=== PATIENT | female | born 1970 | race Caucasian/White ===

== ENCOUNTER → 2016-07-06 | Outpatient (CLI) | payer MEDICARE ==
[~2016-07-06] MED LIST: AMITRIPTYLINE25 MG PO; CLARITIN D TAB1 TAB PO; DARVOCET N 101 UDTAB PO; DEPAKOTE PO; FLEXERIL; GLUCOPHAGE500 MG/TAB PO; INDERAL PO; MORPHINE10 MG PO; PERCOCET 325 MG1 TA2 PO; PERCOCET 325 MG1 TAB PO; PRILOSEC 20MG20 MG PO; PROZAC20 MG PO; PROZAC40 MG PO; SINVASTATIN; TRIAZOLAM0.25 MG PO
== END ==
LOC: BHSO 15:00
DX: F06.32 Mood disorder due to known physiological condition with major depressive-like episode (principal)

== ENCOUNTER → 2016-08-03 | Outpatient (CLI) | payer MEDICARE | LOC: BHSO 15:08 | DX: F41.1 Generalized anxiety disorder (principal) ==

== ENCOUNTER → 2017-02-17 | Outpatient (REF) | LOC: WSOH 15:30 | DX: Z02.89 Encounter for other administrative examinations (principal) ==

== ENCOUNTER → 2017-04-15 | Outpatient (CLI) | payer MEDICARE | LOC: BHSO 15:06 | DX: F41.1 Generalized anxiety disorder (principal) ==

== ENCOUNTER → 2017-12-23 | Outpatient (CLI) | payer MEDICARE | LOC: BHSO 13:29 | DX: F42.8 Other obsessive-compulsive disorder (principal) | CPT/HCPCS: G0463 ==

== ENCOUNTER → 2018-03-27 | Outpatient (CLI) | payer MEDICARE ==
[2018-03-27 13:08] LABS: COLLECTION METHOD CLEAN CATCH
[2018-03-27 13:11] LABS: BASO # 0.1 (0.0-0.2); BASO % 0.5 % (0.0-2.0); EOS # 0.3 (0.0-0.7); EOS % 1.8 % (0-4.0); GRAN % 63.1 % (42.2-75.2); HEMOGLOBIN 14.5 g/dl (12.5-16.0); LYMPH # 4.8 (1.2-3.4); LYMPH % 27.4 % (20.0-51.0); MEAN CELL VOLUME 87 fl (80.0-100.0); MEAN CORPUSCULAR HEMOGLOBIN 29 pg (27.0-31.0); MEAN CORPUSCULAR HGB CONC 34 g/dl (33.0-37.0); MONO # 1.2 (0.1-0.6); MONO % 6.6 % (1.7-9.3); PLATELET COUNT 506 K/mm3 (130-400); RED BLOOD COUNT 4.94 M/mm3 (4.10-5.30); REDCELL DISTRIBUTION WIDTH-CV 12.9 % (11.5-14.5)
[2018-03-27 13:12] LABS: ALBUMIN 4.1 gm/dL (3.5-5.0); BILIRUBIN,TOTAL 0.4 mg/dL (0.0-1.0); CALCIUM 9.6 mg/dL (8.4-10.2); CHOLESTEROL RISK RATIO 8.2; CREATININE, serum 0.91 mg/dL (0.52-1.25); MUCOUS Present /lpf; PH 5 (5-8); POTASSIUM 3.4 mmol/L (3.4-5.0); SQUAMOUS EPITHELIAL 0-2 /hpf; THYROID STIMULATING HORMONE 0.19 uIU/mL (0.465-4.680); TOTAL PROTEIN 7.7 gm/dL (6.4-8.2); URINE APPEARANCE Clear; URINE BACTERIA None Seen /hpf; URINE BILIRUBIN Negative (NEGATIVE); URINE BLOOD Negative (NEGATIVE); URINE COLOR Yellow; URINE GLUCOSE Negative (NEGATIVE); URINE KETONE Negative (NEGATIVE); URINE LEUKOCYTE ESTERASE Negative (NEGATIVE); URINE NITRATE Negative (NEGATIVE); URINE PROTEIN(semi-quant) Negative (NEGATIVE); URINE RBC 0-2 /hpf; URINE UROBILINOGEN Negative (NEGATIVE); URINE WBC 0-2 /hpf
[2018-03-28 03:11] LABS: HEPATITIS C VIRUS ANTIBODY Negative (Negative)
== END ==
LOC: COL.LAB 09:14
PROVIDERS: Internal Medicine
DX: Z11.59 Encounter for screening for other viral diseases (principal); I10 Essential (primary) hypertension; E78.5 Hyperlipidemia, unspecified; E11.9 Type 2 diabetes mellitus without complications
CPT/HCPCS: 87522

== ENCOUNTER → 2018-07-06 | Outpatient (CLI) | payer MEDICARE ==
[2018-07-06 10:15] LABS: BASO # 0.1 (0.0-0.2); BASO % 0.4 % (0.0-2.0); EOS # 0.3 (0.0-0.7); EOS % 2.3 % (0-4.0); GRAN # 10.2 (1.4-6.5); GRAN % 67.5 % (42.2-75.2); HEMATOCRIT 44.4 % (37.0-47.0); HEMOGLOBIN 14.9 g/dl (12.5-16.0); LYMPH # 3.6 (1.2-3.4); LYMPH % 23.8 % (20.0-51.0); MEAN CELL VOLUME 87 fl (80.0-100.0); MEAN CORPUSCULAR HEMOGLOBIN 29 pg (27.0-31.0); MEAN CORPUSCULAR HGB CONC 34 g/dl (33.0-37.0); MEAN PLATELET VOLUME 9.6 fl (7.4-10.4); MONO # 0.8 (0.1-0.6); MONO % 5.5 % (1.7-9.3); PLATELET COUNT 518 K/mm3 (130-400); RED BLOOD COUNT 5.12 M/mm3 (4.10-5.30); REDCELL DISTRIBUTION WIDTH-CV 13.9 % (11.5-14.5)
== END ==
LOC: COL.LAB 09:53
PROVIDERS: Internal Medicine
DX: D64.9 Anemia, unspecified (principal)

== ENCOUNTER → 2018-07-25 | Outpatient (CLI) | payer MEDICARE | LOC: BHSO 14:45 | DX: F41.1 Generalized anxiety disorder (principal) | CPT/HCPCS: G0463 ==

== ENCOUNTER → 2018-09-19 | Outpatient (CLI) | payer MEDICARE | LOC: BHSO 14:38 | DX: F42.8 Other obsessive-compulsive disorder (principal) | CPT/HCPCS: G0463 ==

== ENCOUNTER → 2018-10-02 | Outpatient (CLI) | payer MEDICARE ==
[2018-10-02 10:49] LABS: BASO # 0.1 (0.0-0.2); BASO % 0.5 % (0.0-2.0); EOS # 0.3 (0.0-0.7); EOS % 2.3 % (0-4.0); GRAN # 9.3 (1.4-6.5); GRAN % 64.7 % (42.2-75.2); HEMATOCRIT 42.8 % (37.0-47.0); HEMOGLOBIN 14.3 g/dl (12.5-16.0); LYMPH # 3.5 (1.2-3.4); LYMPH % 24.1 % (20.0-51.0); MEAN CELL VOLUME 88 fl (80.0-100.0); MEAN CORPUSCULAR HEMOGLOBIN 29 pg (27.0-31.0); MEAN CORPUSCULAR HGB CONC 33 g/dl (33.0-37.0); MEAN PLATELET VOLUME 9.4 fl (7.4-10.4); MONO # 1.1 (0.1-0.6); MONO % 7.9 % (1.7-9.3); PLATELET COUNT 536 K/mm3 (130-400); RED BLOOD COUNT 4.89 M/mm3 (4.10-5.30); REDCELL DISTRIBUTION WIDTH-CV 13.3 % (11.5-14.5)
[2018-10-02 10:59] LABS: CHOLESTEROL RISK RATIO 4.9
== END ==
LOC: COL.LAB 09:46
PROVIDERS: Internal Medicine
DX: D72.829 Elevated white blood cell count, unspecified (principal); D47.3 Essential (hemorrhagic) thrombocythemia; E78.5 Hyperlipidemia, unspecified

== ENCOUNTER → 2018-11-02 | Outpatient (CLI) | payer MEDICARE | LOC: BHSO 14:49 | DX: F42.8 Other obsessive-compulsive disorder (principal) | CPT/HCPCS: G0463 ==

== ENCOUNTER → 2019-01-02 | Outpatient (CLI) | payer MEDICARE | LOC: COL.CARD 13:00 | DX: R41.82 Altered mental status, unspecified (principal); Z53.8 Procedure and treatment not carried out for other reasons ==

== ENCOUNTER 2019-06-12 04:05 | Emergency (ER) | payer MEDICARE ==
[~2019-06-12] VITALS: Ht 149.9 cm; Wt 76.4 kg
[~2019-06-12 04:05] MED LIST changes: +AMITRIPTYLINE H50 M1 PO; -AMITRIPTYLINE25 MG PO
[2019-06-12 04:24] VITALS: TEMP 97.1
[2019-06-12 04:49] LABS: HEMATOCRIT 45.7 % (37.0-47.0); HEMOGLOBIN 15.5 g/dl (12.5-16.0); MEAN CELL VOLUME 87 fl (80.0-100.0); MEAN CORPUSCULAR HEMOGLOBIN 29 pg (27.0-31.0); MEAN CORPUSCULAR HGB CONC 34 g/dl (33.0-37.0); MEAN PLATELET VOLUME 9.4 fl (7.4-10.4); PLATELET COUNT 610 K/mm3 (130-400); RED BLOOD COUNT 5.27 M/mm3 (4.10-5.30); REDCELL DISTRIBUTION WIDTH-CV 13.9 % (11.5-14.5)
[2019-06-12 05:02] LABS: ALANINE AMINOTRANSFERASE 12 U/L (9-52); ALBUMIN 4.7 gm/dL (3.5-5.0); ALKALINE PHOSPHATASE 77 U/L (50-136); ANION GAP 13 mmol/L (7-16); AST,SGOT 16 U/L (15-37); BILIRUBIN,TOTAL 0.3 mg/dL (0.0-1.0); BLOOD UREA NITROGEN 20 mg/dL (7-17); CALCIUM 10.9 mg/dL (8.4-10.2); CARBON DIOXIDE 25 mmol/L (22-30); CHLORIDE 103 mmol/L (98-107); CREATININE, serum 0.84 (0.52-1.25); GLUCOSE 140 mg/dL (74-106); LIPASE 141 U/L (23-300); POTASSIUM 4.1 mmol/L (3.4-5.0); SODIUM 141 mmol/L (137-145)
[2019-06-12 05:03] LABS: C-REACTIVE PROTEIN < 0.5 mg/dL (0.0-0.9)
[2019-06-12 05:10] LABS: BAND 1 % (0-10); NEUTROPHILS 70 % (42.0-75.2); PLATELET ESTIMATE INCREASED (NORMAL)
[2019-06-12 05:12] LABS: LYMPHOCYTE 27 % (20.0-51.0)
[2019-06-12 05:13] LABS: TROPONIN-I < 0.012 ng/mL (0.000-0.035)
[2019-06-12 06:32] LABS: COLLECTION METHOD CLEAN CATCH
[2019-06-12 06:37] LABS: MUCOUS Present /lpf; PH 6 (5-8); SQUAMOUS EPITHELIAL 0-2 /hpf; URINE APPEARANCE Clear; URINE BACTERIA None Seen /hpf; URINE BILIRUBIN Negative (NEGATIVE); URINE BLOOD Negative (NEGATIVE); URINE COLOR Straw; URINE GLUCOSE Negative (NEGATIVE); URINE KETONE Negative (NEGATIVE); URINE LEUKOCYTE ESTERASE Negative (NEGATIVE); URINE NITRATE Negative (NEGATIVE); URINE PROTEIN(semi-quant) Negative (NEGATIVE); URINE UROBILINOGEN Negative (NEGATIVE)
[2019-06-12] MEDS ORDERED: CARAFATE 1GM1 G PO (07:53)
[2019-06-12] MEDS ORDERED: PROTONIX 40MG T40 MG PO (07:53)
[2019-06-12] MEDS ORDERED: AMOXICILLIN 8751 TAB PO (07:53)
[2019-06-12 08:01] LABS: BASO # 0.1 (0.0-0.2); BASO % 0.4 % (0.0-2.0); EOS # 0.2 (0.0-0.7); EOS % 0.9 % (0-4.0); GRAN # 17.3 (1.4-6.5); GRAN % 76.1 % (42.2-75.2); HEMATOCRIT 42.1 % (37.0-47.0); HEMOGLOBIN 14.1 g/dl (12.5-16.0); LYMPH # 3.6 (1.2-3.4); LYMPH % 15.9 % (20.0-51.0); MEAN CELL VOLUME 86 fl (80.0-100.0); MEAN CORPUSCULAR HEMOGLOBIN 29 pg (27.0-31.0); MEAN CORPUSCULAR HGB CONC 34 g/dl (33.0-37.0); MEAN PLATELET VOLUME 9.6 fl (7.4-10.4); MONO # 1.4 (0.1-0.6); REDCELL DISTRIBUTION WIDTH-CV 13.8 % (11.5-14.5)
[2019-06-12 08:02] LABS: PLATELET COUNT 486 K/mm3 (130-400)
[2019-06-12 09:00] VITALS: BP 123/93; PULSE 93
[2019-06-16] VITALS (290 sets, daily range): O2SAT 89–100
== END 2019-06-12 09:36 | disposition home or self-care (01) ==
LOC: COL.ER 04:05
PROVIDERS: Emergency Medicine
DX: R10.11 Right upper quadrant pain (principal); M79.7 Fibromyalgia; F17.210 Nicotine dependence, cigarettes, uncomplicated; Z95.5 Presence of coronary angioplasty implant and graft
CPT/HCPCS: C9113; J1170; J2405; J7030; Q9967

== ENCOUNTER 2019-06-15 20:45 | Observation (INO) | payer MEDICARE ==
[~2019-06-15] VITALS: Ht 149.9 cm; Wt 76.9 kg
[~2019-06-15 20:45] MED LIST changes: +AMOXICILLIN 8751 TAB PO; +CARAFATE 1GM1 G PO; +PROTONIX 40MG T40 MG PO
[2019-06-15 21:30] LABS: BASO # 0.1 (0.0-0.2); BASO % 0.4 % (0.0-2.0); EOS # 0.5 (0.0-0.7); EOS % 2.5 % (0-4.0); GRAN # 13.8 (1.4-6.5); GRAN % 67.7 % (42.2-75.2); HEMATOCRIT 44.7 % (37.0-47.0); HEMOGLOBIN 14.8 g/dl (12.5-16.0); LYMPH # 4.5 (1.2-3.4); LYMPH % 22.1 % (20.0-51.0); MEAN CELL VOLUME 87 fl (80.0-100.0); MEAN CORPUSCULAR HEMOGLOBIN 29 pg (27.0-31.0); MEAN CORPUSCULAR HGB CONC 33 g/dl (33.0-37.0); MEAN PLATELET VOLUME 9.6 fl (7.4-10.4); MONO # 1.4 (0.1-0.6); MONO % 6.7 % (1.7-9.3); PLATELET COUNT 502 K/mm3 (130-400); RED BLOOD COUNT 5.15 M/mm3 (4.10-5.30)
[2019-06-15 21:42] LABS: ALBUMIN 4.5 gm/dL (3.5-5.0); BILIRUBIN,TOTAL 0.2 mg/dL (0.0-1.0); C-REACTIVE PROTEIN 1.2 mg/dL (0.0-0.9); CALCIUM 10.5 mg/dL (8.4-10.2); CREATININE, serum 0.92 (0.52-1.25); POTASSIUM 3.7 mmol/L (3.4-5.0); TOTAL PROTEIN 7.7 gm/dL (6.4-8.2)
[2019-06-15 22:55] LABS: COLLECTION METHOD CLEAN CATCH
[2019-06-15 23:00] LABS: PH 5 (5-8); URINE APPEARANCE Clear; URINE BACTERIA None Seen /hpf; URINE BILIRUBIN Negative (NEGATIVE); URINE BLOOD Negative (NEGATIVE); URINE COLOR Yellow; URINE GLUCOSE Negative (NEGATIVE); URINE KETONE Negative (NEGATIVE); URINE LEUKOCYTE ESTERASE Negative (NEGATIVE); URINE NITRATE Negative (NEGATIVE); URINE PROTEIN(semi-quant) Negative (NEGATIVE); URINE RBC 0-2 /hpf; URINE UROBILINOGEN Negative (NEGATIVE)
[2019-06-16] VITALS (11 sets, daily range): BP systolic 104–133; BP diastolic 62–108; PULSE 90–97; TEMP 98–98.7
--- NOTE | 2019-06-16 02:00 | NUR ---
Patient arrived to the unit at 2355 via wheelchair with IV fluids running. Patient able to ambulated around room without diffulty, used toilet without difficulty, and requested to be fitted for CPAP. Patient currently laying in bed with eyes closed and CPAP in place. Pleasant and cooperative, encouraged to use call light for assistance.
[2019-06-16] MEDS ORDERED: ATIVAN 0.50.5 MG/TAB PO (02:28)
[2019-06-16] MEDS ORDERED: FLEXERIL 1010 MG/TAB PO (02:30)
[2019-06-16] MEDS ORDERED: XANAX 0.5MG0.5 MG PO (02:30)
[2019-06-16] MEDS ORDERED: DILAUDID 4MG TAB4 MG PO (02:31)
[2019-06-16] MEDS ORDERED: LAMICTAL 100MG100 MG PO (02:32)
[2019-06-16] MEDS ORDERED: GLUCOPHAGE500 MG/TAB PO (02:33)
[2019-06-16] MEDS ORDERED: LASIX 40MG TABL40 MG PO (02:33)
[2019-06-16] MEDS ORDERED: NEURONTIN400 MG/CAP PO (02:35)
[2019-06-16] MEDS ORDERED: LIPITOR 80MG80 MG PO (02:38)
[2019-06-16] MEDS ORDERED: LOPRESSOR 225 MG/TAB PO (02:39)
[2019-06-16] MEDS ORDERED: ASPIRIN 81M81 MG/TA2 PO (02:42)
--- NOTE | 2019-06-16 03:15 | NUR ---
Patient asleep with occasional snoring respirations. Refusing to wear CPAP due to complaints it doesn't fit properly and is too different from her personal machine. Encouraged patient to use call light for assistance, states pain is 1/10 and mostly only when she moves a certain way. IV infusing well.
--- NOTE | 2019-06-16 07:10 | NUR ---
Patient report recieved from KIRK Mohamud. Patient sleeping at this time. Care assumed.
--- NOTE | 2019-06-16 08:55 | NUR ---
Dr. Fierro rounds at this time. Orders as entered [facility]PO[facility].
--- NOTE | 2019-06-16 11:15 | NUR ---
Patient departs with KIRK Bryan for scheduled cholecystectomy. Signed consent is placed on chart and sent with. Care completed.
--- NOTE | 2019-06-16 12:48 | NUR ---
PATIENT TO ROOM 348. IVF INFUSING. DRESSINGS TO ABDOMEN ARE CLEAN DRY AND INTACT. LUNCH IS PROVIDED. SHE DRANK A CHOCOLATE MILK WITHOUT DIFFICULTY.
--- NOTE | 2019-06-16 13:00 | NUR ---
PATIENT COMPLAINS OF LEFT MIDDLE QUAD PAIN WELL A DULL HEADACHE. SHE WILL EAT LUNCH AND WILL FOLLOW UP WITH NEXT VITALS.
--- NOTE | 2019-06-16 13:47 | NUR ---
PATIENT IS COMPLAINING OF LOWER BACK PAIN. ICE IS PROVIDED SHE DIDN'T WANT ORAL MEDICAITON AT THIS TIME. VSS. INCISIONS ARE OPEN TO AIR AND NO DRAINAGE. WILL PROVIDE PUDDING SHE CAN'T EAT THE HAMBURGER.
--- NOTE | 2019-06-16 14:10 | NUR ---
PATIENT IS EATING AND DRINKING WELL. SHE DOESN'T NEED TO GET UP TO THE RESTROOM YET.FAMILY AT BEDSIDE. O2 IS TURNED OFF AT THIS TIME.
--- NOTE | 2019-06-16 15:45 | NUR ---
PATIENT DISCHARGED TO HOME WITH BELONGINGS AND FAMILY AT HER SIDE. SHE DENIES FURTHER QUESTIONS AT THIS TIME. HAVING SOME MIDDLE BACK PAIN AND IS HOPING THAT WHEN SHE GETS HOME IT WILL GET BETTER. WILL TAKE HOME MEDICATIONS WHEN SHE GETS THERE.
== END 2019-06-16 15:50 | disposition home or self-care (01) ==
LOC: COL.ER 20:45 → IMCU 22:59 → SURG 06-16 10:15
PROVIDERS: Physician Assistant; ADMIT Surgery
DX: K80.12 Calculus of gallbladder with acute and chronic cholecystitis without obstruction (principal); F41.9 Anxiety disorder, unspecified; Q79.60 Ehlers-Danlos syndrome, unspecified; I25.10 Atherosclerotic heart disease of native coronary artery without angina pectoris; M79.7 Fibromyalgia; F17.210 Nicotine dependence, cigarettes, uncomplicated; G47.33 Obstructive sleep apnea (adult) (pediatric); I25.2 Old myocardial infarction; F32.9 Major depressive disorder, single episode, unspecified; R73.03 Prediabetes; Z79.84 Long term (current) use of oral hypoglycemic drugs; Z79.82 Long term (current) use of aspirin; Z88.1 Allergy status to other antibiotic agents; Z88.8 Allergy status to other drugs, medicaments and biological substances
CPT/HCPCS: G0378; J0330; J1100; J1170; J1885; J2250; J2270; J2405; J2543; J2704; J3010; J7030; Q9967

== ENCOUNTER → 2020-08-11 | Outpatient (CLI) | payer MEDICARE ==
[~2020-08-11] MED LIST changes: +ASPIRIN 81M81 MG/TA2 PO; +ATIVAN 0.50.5 MG/TAB PO; +DILAUDID 4MG TAB4 MG PO; +FLEXERIL 1010 MG/TAB PO; +LAMICTAL 100MG100 MG PO; +LASIX 40MG TABL40 MG PO; +LIPITOR 80MG80 MG PO; +LOPRESSOR 225 MG/TAB PO; +NEURONTIN400 MG/CAP PO; +XANAX 0.5MG0.5 MG PO
== END ==
LOC: MHCPAIN 09:19
DX: M47.812 Spondylosis without myelopathy or radiculopathy, cervical region (principal); M47.816 Spondylosis without myelopathy or radiculopathy, lumbar region; G89.29 Other chronic pain
CPT/HCPCS: G0463

== ENCOUNTER 2020-08-25 13:46 | Outpatient (RCR) | payer MEDICARE ==
[~2020-08-25 13:46] MED LIST changes: -AMITRIPTYLINE H50 M1 PO; +PAMELOR 25MG25 MG PO
[2020-09-25] MEDS ORDERED: PRIL40 PO (12:36)
[2020-09-25] MEDS ORDERED: TOPAMAX50 MG PO (12:37)
== END 2020-11-06 16:40 | disposition home or self-care (01) ==
LOC: WSC 13:46
DX: M79.7 Fibromyalgia (principal)

== ENCOUNTER 2020-09-25 11:32 | Day surgery (SDC) | payer MEDICARE ==
[2020-09-25] VITALS (13 sets, daily range): BP systolic 92–129; BP diastolic 25–92; PULSE 75–98; TEMP 98.5
[~2020-09-25] VITALS: Ht 149.9 cm; Wt 72.1 kg
[2020-09-25] MEDS ORDERED: PRIL40 PO (12:36)
[2020-09-25] MEDS ORDERED: TOPAMAX50 MG PO (12:37)
[2020-09-25 12:53] LABS: HEMATOCRIT 42.8 % (37.0-47.0); HEMOGLOBIN 14.2 g/dl (12.5-16.0); MEAN CELL VOLUME 90 fl (80.0-100.0); MEAN CORPUSCULAR HEMOGLOBIN 30 pg (27.0-31.0); MEAN CORPUSCULAR HGB CONC 33 g/dl (33.0-37.0); MEAN PLATELET VOLUME 9.7 fl (7.4-10.4); PLATELET COUNT 428 K/mm3 (130-400); RED BLOOD COUNT 4.75 M/mm3 (4.10-5.30); REDCELL DISTRIBUTION WIDTH-CV 13.5 % (11.5-14.5)
[2020-09-25 12:57] LABS: INR 1.1 (0.8-3.0); PROTHROMBIN TIME 11.8 SECONDS (9.7-12.8)
[2020-09-25 13:00] LABS: CALCIUM 9.8 mg/dL (8.4-10.2); POTASSIUM 3.8 mmol/L (3.4-5.0)
--- NOTE | 2020-09-25 13:47 | NUR ---
SEE MERGE DOCUMENTATION FOR MEDICATION ADMINISTRATION AND INTRA/POST PROCEDURE ASSESSMENTS.
--- NOTE | 2020-09-25 14:30 | NUR ---
Pt back to express after negative heart cath. Pt is alert and oriented, drowsy, in no distress. rt groin site soft , dressing clean dry and intact. pt has call light. telemetry employed. aly
--- NOTE | 2020-09-25 15:30 | NUR ---
pt doing well during her recovery. pt has ordered lunch. she denies any needs at this time. rt femoral site unchanged and vitals stable. wctm
--- NOTE | 2020-09-25 18:06 | NUR ---
pt has eaten with no problem, and has been napping. no change in rt femoral site, which remains soft with cdi dressing. pt and i reviewed dc instructions related to puncture site and to moderate sedation. pt denied any questions about these topics.
--- NOTE | 2020-09-25 18:45 | NUR ---
bed rest complete, pt has been up and ambulatory in unit with no problem, no changes to puncture site which remains soft with clean dressing. I reviewed written dc and fu instructions with pt who verbalized understanding. iv was dc'd with cath intact. dressing applied. pt escorted to exit via wheelchair.
== END 2020-09-25 20:12 | disposition home or self-care (01) ==
LOC: COL.CAR 11:32
PROVIDERS: Internal Medicine Cardiovascular Disease
DX: I25.110 Atherosclerotic heart disease of native coronary artery with unstable angina pectoris (principal); F41.9 Anxiety disorder, unspecified; G89.29 Other chronic pain; F32.9 Major depressive disorder, single episode, unspecified; E78.5 Hyperlipidemia, unspecified; I10 Essential (primary) hypertension; M79.7 Fibromyalgia; I25.5 Ischemic cardiomyopathy; I25.2 Old myocardial infarction; E66.9 Obesity, unspecified; Z88.1 Allergy status to other antibiotic agents; Z79.82 Long term (current) use of aspirin; Z79.84 Long term (current) use of oral hypoglycemic drugs; F17.210 Nicotine dependence, cigarettes, uncomplicated
CPT/HCPCS: C1760; C1769; C1894; J1644; J2250; J3010; Q9967

== ENCOUNTER → 2020-10-22 | Outpatient (CLI) | payer MEDICARE ==
[~2020-10-22] MED LIST changes: +PRIL40 PO; +TOPAMAX50 MG PO
[2020-10-22 10:35] LABS: COLLECTION METHOD CLEAN CATCH
[2020-10-22 10:43] LABS: BASO # 0.1 (0.0-0.2); BASO % 0.6 % (0.0-2.0); EOS # 0.1 (0.0-0.7); EOS % 0.6 % (0-4.0); GRAN % 64.2 % (42.2-75.2); HEMOGLOBIN 14.3 g/dl (12.5-16.0); LYMPH # 3.1 (1.2-3.4); LYMPH % 28.3 % (20.0-51.0); MEAN CELL VOLUME 87 fl (80.0-100.0); MEAN CORPUSCULAR HEMOGLOBIN 30 pg (27.0-31.0); MEAN CORPUSCULAR HGB CONC 34 g/dl (33.0-37.0); MONO # 0.6 (0.1-0.6); MONO % 5.9 % (1.7-9.3); PLATELET COUNT 471 K/mm3 (130-400); RED BLOOD COUNT 4.82 M/mm3 (4.10-5.30); REDCELL DISTRIBUTION WIDTH-CV 13.6 % (11.5-14.5)
[2020-10-22 10:47] LABS: PH 6 (5-8); SQUAMOUS EPITHELIAL None Seen /hpf; URINE APPEARANCE Hazy; URINE BACTERIA None Seen /hpf; URINE BILIRUBIN Negative (NEGATIVE); URINE BLOOD Negative (NEGATIVE); URINE COLOR Yellow; URINE GLUCOSE Negative (NEGATIVE); URINE KETONE Negative (NEGATIVE); URINE LEUKOCYTE ESTERASE Negative (NEGATIVE); URINE NITRATE Negative (NEGATIVE); URINE PROTEIN(semi-quant) Negative (NEGATIVE); URINE RBC None Seen /hpf; URINE UROBILINOGEN Negative (NEGATIVE)
[2020-10-22 10:52] LABS: ALBUMIN 4.3 gm/dL (3.5-5.0); BILIRUBIN,TOTAL 0.4 mg/dL (0.0-1.0); CALCIUM 10.1 mg/dL (8.4-10.2); CHOLESTEROL RISK RATIO 5.1; CREATININE, serum 0.96 (0.52-1.25); POTASSIUM 3.4 mmol/L (3.4-5.0); TOTAL PROTEIN 7.6 gm/dL (6.4-8.2)
== END ==
LOC: COL.LAB 09:53
PROVIDERS: Family Medicine
DX: I10 Essential (primary) hypertension (principal); E78.00 Pure hypercholesterolemia, unspecified; E11.9 Type 2 diabetes mellitus without complications; E55.9 Vitamin D deficiency, unspecified

== ENCOUNTER → 2021-08-27 | Outpatient (CLI) | payer MEDICARE | LOC: MC.RAD 16:38 | DX: Z12.31 Encounter for screening mammogram for malignant neoplasm of breast (principal) ==

== ENCOUNTER → 2021-12-01 | Outpatient (CLI) | payer MEDICARE ==
[2021-12-01 09:57] LABS: BASO # 0.1 K/mm3 (0.0-0.2); BASO % 0.4 % (0.0-2.0); EOS # 0.3 K/mm3 (0.0-0.7); EOS % 2.3 % (0.0-4.0); GRAN # 8.5 K/mm3 (1.4-6.5); GRAN % 62.8 % (42.2-75.2); HEMATOCRIT 44.3 % (37.0-47.0); HEMOGLOBIN 14.4 g/dl (12.5-16.0); LYMPH # 3.8 K/mm3 (1.2-3.4); LYMPH % 27.9 % (20.0-51.0); MEAN CELL VOLUME 92 fl (80.0-100.0); MEAN CORPUSCULAR HEMOGLOBIN 30 pg (27-31); MEAN CORPUSCULAR HGB CONC 33 g/dl (33.0-37.0); MEAN PLATELET VOLUME 10.2 fl (7.4-10.4); MONO # 0.8 K/mm3 (0.1-0.6); MONO % 5.9 % (1.7-9.3); PLATELET COUNT 400 K/mm3 (130-400); RED BLOOD COUNT 4.81 M/mm3 (4.10-5.30)
[2021-12-01 10:20] LABS: ALBUMIN 3.8 gm/dL (3.5-5.0); BILIRUBIN,TOTAL 0.4 mg/dL (0.2-1.2); CALCIUM 9.7 mg/dL (8.4-10.2); CHOLESTEROL RISK RATIO 5.2; CREATININE, serum 0.97 mg/dL (0.57-1.11); POTASSIUM 3.8 mmol/L (3.5-4.5); TOTAL PROTEIN 7.3 gm/dL (6.2-8.1)
[2021-12-01 10:39] LABS: TSH w REFLEX 1.155 uIU/mL (0.350-4.940)
== END ==
LOC: COL.LAB 09:24
PROVIDERS: Family Medicine
DX: E78.00 Pure hypercholesterolemia, unspecified (principal); E11.9 Type 2 diabetes mellitus without complications; E55.9 Vitamin D deficiency, unspecified

== ENCOUNTER → 2023-09-06 | Outpatient (CLI) | payer MEDICARE | LOC: MC.RAD 14:45 | DX: Z12.31 Encounter for screening mammogram for malignant neoplasm of breast (principal) ==